=== PATIENT | female | born 1990 | race Caucasian/White ===

== ENCOUNTER 2018-03-18 05:03 | Inpatient (IN) ==
[2018-03-18] MEDS ORDERED: MEPERIDINE 50 MG/1 ML VIAL IV PRN (05:23)
[2018-03-18] MEDS ORDERED: ONDANSETRON 4 MG/2 ML VIAL IV PRN (05:23)
[2018-03-18] MEDS: LACTATED RINGERS 1,000 ML IV SCH ×2 (05:40→10:00)
[2018-03-18] MEDS ORDERED: DEXTROSE 50% 25 GM/50 ML VIAL IV PRN ×2 (05:44→20:12)
[2018-03-18] MEDS ORDERED: INSULIN REGULAR 100 UNIT/ML SUBCUT PRN (05:44)
[2018-03-18] MEDS ORDERED: GLUCAGON 1 MG VIAL IM PRN ×2 (05:44→20:12)
[2018-03-18 05:47] LABS: Basophils # 0.1 10*3/uL (0.0-0.2); Basophils % 0.5 % (0.0-0.8); Eosinophils # 0.4 10*3/uL (0.0-0.87); Eosinophils % 3.4 % (0.00-10.9); Hematocrit 41.9 VOL% (35.7-47.0); Hemoglobin 14.3 GM/DL (12.0-16.0); Immature Granulocytes Absolute 0.13 #; Lymphocytes # 2.5 10*3/uL (1.4-4.0); Lymphocytes % 19.8 % (21.3-54.2); Mean Corpuscular HGB Conc 34.1 GM/DL (32-36); Mean Corpuscular Hemoglobin 31 PG (27-34); Mean Corpuscular Volume 90.5 FL (87-102); Mean Platelet Volume 11.1 FL (9.6-12.0); Monocytes # 1.2 10*3/uL (0.11-0.8); Monocytes % 9.2 % (1.7-12.7); Neutrophils # 8.4 10*3/uL (1.4-7.4); Neutrophils % 66.1 % (38.7-73.9); Platelet Count 176 T/CUMM (130-400); Red Blood Count 4.63 MC/CUMM (3.8-5.5); Red Cell Distribution Width 14.3 % (9.3-17.3); White Blood Count 12.7 T/CUMM (4-12)
[2018-03-18] MEDS ORDERED: PENICILLIN G POTASSIUM INJ 6,000,000 UNIT in SODIUM CHLORIDE 0.9% 100 ML IV ONE (06:00)
[2018-03-18 06:16] LABS: Alanine Aminotransferase 39 U/L (13-56); Albumin 2.5 G/DL (3.4-5.0); Alkaline Phosphatase 118 U/L (45-117); Aspartate Amino Transferase 26 U/L (0-37); Bilirubin,Total < 0.39 MG/DL (0.2-1.0); Blood Urea Nitrogen 12 MG/DL (7-18); Calcium 8.9 MG/DL (8.5-10.1); Glucose 108 MG/DL (74-106); Osmolality,Calculated 275.7 MOS/KG (273-304); Potassium 4.3 MMOL/L (3.5-5.1); Sodium 138 MMOL/L (136-145); Total Protein 6.7 G/DL (6.4-8.3)
[2018-03-18] MEDS: OXYTOCIN/LR 20 UNIT/1,000 ML BAG IV SCH ×2 (07:53→20:11)
[2018-03-18] MEDS ORDERED: diphenhydrAMINE 50 MG/1 ML VIAL IV PRN ×3 (08:16→20:29)
[2018-03-18] MEDS ORDERED: ONDANSETRON 4 MG/2 ML VIAL IV ONE (08:16)
[2018-03-18] MEDS ORDERED: CITRIC ACID/SODIUM CITRATE 30 ML UDCUP PO ONE (08:16)
[2018-03-18] MEDS ORDERED: PROMETHAZINE 25 MG/1 ML VIAL IM ONE (08:16)
[2018-03-18] MEDS ORDERED: hydrOXYzine HCL 25 MG/1 ML VIAL IM PRN (08:16)
[2018-03-18] MEDS ORDERED: NALOXONE 0.4 MG/ML VIAL IV PRN (08:16)
[2018-03-18] MEDS ORDERED: FAMOTIDINE 20 MG/2 ML VIAL IV ONE (08:16)
[2018-03-18] MEDS ORDERED: ePHEDrine 50 MG/ML AMP IV PRN (08:16)
[2018-03-18] MEDS ORDERED: fentaNYL 2 MCG/ROPIV 0.2% EPID 100 ML EPIDURAL SCH (08:30)
[2018-03-18 10:55] LABS: Apearance,Urine CLEAR (Clear); Bilirubin,Urine Negative (Negative); Blood, Urine Negative (Negative); Glucose,Urine (UA) Negative (Negative); Ketones,Urine Negative (Negative); Mucus,Urine Occasional /LPF (Occasional); Nitrite,Urine Negative (Negative); Protein,Urine Negative; RBC,Urine <1 /HPF (0-4); Urine Color Yellow (Yellow); Urine Specific Gravity 1.012 (1.001-1.035); Urine Urobilinogen < 2.0 EU/DL (0.2-1.0); WBC,Urine <1 /HPF (0-6)
[2018-03-18] MEDS ORDERED: PENICILLIN G POTASSIUM INJ 3,000,000 UNIT in SODIUM CHLORIDE 0.9% 100 ML IV SCH (12:00)
[2018-03-18] MEDS ORDERED: ceFAZolin 3,000 MG in SYRINGE 1 EACH IV ONE (15:09)
[2018-03-18] MEDS ORDERED: OXYTOCIN 10 UNIT/ML VIAL ONE (15:41)
[2018-03-18 16:37] LABS: Cord Arterial Blood HCO3 13.5 MMOL/L
[2018-03-18] MEDS ORDERED: MORPHINE 10 MG/10 ML VIAL ONE (16:58)
[2018-03-18] MEDS ORDERED: LIDOCAINE MPF 2% /EPI 20 ML VIAL ONE (16:59)
[2018-03-18] MEDS ORDERED: PHENYLEPHRINE 1 MG/10 ML SYRINGE IV ONE (16:59)
[2018-03-18] MEDS ORDERED: RHO(D) IMMUNE GLOBULIN 300 MCG SYRINGE IM ONE (20:12)
[2018-03-18] MEDS ORDERED: SIMETHICONE CHEW 80 MG TABLET PO PRN (20:12)
[2018-03-18] MEDS: DOCUSATE SODIUM 100 MG CAPSULE PO SCH (21:31)
[2018-03-18] MEDS: ceFAZolin 2,000 MG in PREMIX 1 EACH IV SCH (23:50)
[2018-03-19] MEDS: LACTATED RINGERS 1,000 ML IV SCH ×2 (04:04→06:01)
[2018-03-19 06:07] LABS: Basophils % 0.2 % (0.0-0.8); Eosinophils # 0.1 10*3/uL (0.0-0.87); Eosinophils % 0.9 % (0.00-10.9); Hematocrit 32.7 VOL% (35.7-47.0); Hemoglobin 10.9 GM/DL (12.0-16.0); Immature Granulocytes % 0.6 %; Immature Granulocytes Absolute 0.09 #; Lymphocytes # 1.4 10*3/uL (1.4-4.0); Lymphocytes % 9.8 % (21.3-54.2); Mean Corpuscular HGB Conc 33.3 GM/DL (32-36); Mean Corpuscular Hemoglobin 31 PG (27-34); Mean Corpuscular Volume 93.2 FL (87-102); Mean Platelet Volume 11.4 FL (9.6-12.0); Monocytes # 1.5 10*3/uL (0.11-0.8); Monocytes % 10.7 % (1.7-12.7); Neutrophils # 10.9 10*3/uL (1.4-7.4); Neutrophils % 77.8 % (38.7-73.9); Platelet Count 131 T/CUMM (130-400); Red Blood Count 3.51 MC/CUMM (3.8-5.5); Red Cell Distribution Width 14.4 % (9.3-17.3)
[2018-03-19] MEDS: ceFAZolin 2,000 MG in PREMIX 1 EACH IV SCH (07:50)
[2018-03-19] MEDS ORDERED: FLUCONAZOLE 150 MG TABLET PO ONE (08:00)
[2018-03-19] MEDS: IBUPROFEN 800 MG TABLET PO SCH ×2 (08:33→18:00)
[2018-03-19] MEDS: MULTIVITAMIN (PRENATAL) TABLET PO SCH (08:34)
[2018-03-19] MEDS: DOCUSATE SODIUM 100 MG CAPSULE PO SCH ×2 (08:34→21:18)
[2018-03-19] MEDS: guaiFENesin/CODEINE 5 ML LIQUID PO PRN ×2 (15:08→21:18)
[2018-03-19] MEDS: ALBUTEROL 1.25 MG/3 ML NEB RESP TX SCH (20:23)
[2018-03-19] MEDS: MAGNESIUM HYDROXIDE SUSP 30 ML UDCUP PO PRN (21:18)
[2018-03-20] MEDS: ALBUTEROL 1.25 MG/3 ML NEB RESP TX SCH ×4 (00:26→19:25)
[2018-03-20] MEDS: guaiFENesin/CODEINE 5 ML LIQUID PO PRN (03:46)
[2018-03-20] MEDS: IBUPROFEN 800 MG TABLET PO SCH ×2 (03:46→12:32)
[2018-03-20] MEDS: OXYTOCIN/LR 20 UNIT/1,000 ML BAG IV SCH (06:28)
[2018-03-20] MEDS: DOCUSATE SODIUM 100 MG CAPSULE PO SCH ×2 (10:17→22:53)
[2018-03-20] MEDS: MAGNESIUM HYDROXIDE SUSP 30 ML UDCUP PO PRN ×2 (10:17→22:52)
[2018-03-21] MEDS: ALBUTEROL 1.25 MG/3 ML NEB RESP TX SCH ×2 (01:17→08:08)
[2018-03-21] MEDS: IBUPROFEN 800 MG TABLET PO SCH ×3 (01:30→09:38)
[2018-03-21] MEDS ORDERED: BISACODYL 10 MG SUPP RECTAL PRN (03:25)
[2018-03-21] MEDS: DOCUSATE SODIUM 100 MG CAPSULE PO SCH (09:17)
[2018-03-21] MEDS: MULTIVITAMIN (PRENATAL) TABLET PO SCH ×2 (09:18→09:33)
[2018-03-21 12:03] VITALS: BP 127/78
== END 2018-03-21 15:20 | disposition home or self-care (01) | DRG 786 ==
LOC: N.LDOUT 05:03 → N.LD 05:05 → N.OB 20:11
PROVIDERS: ADMIT Obstetrics & Gynecology; ATTEND Obstetrics & Gynecology
PROC: LDCSECT (ICD-10-PCS; 2018-03-18 15:35)